=== PATIENT | female | born 1995 | race Caucasian/White ===

== ENCOUNTER 2020-08-14 08:00 | Outpatient (CLI) | payer BC, OTHER ==
[2020-08-14 15:13] LABS: BASOPHILS % (AUTO) 0.3 %; EOSINOPHILS # (AUTO) 0.1 10^3/uL (0.0-0.7); EOSINOPHILS % (AUTO) 0.9 %; HCT - HEMATOCRIT 39.3 % (37.0-47.0); HGB - HEMOGLOBIN 13.2 g/dL (12.0-16.0); LYMPHOCYTES # (AUTO) 1.4 10^3/uL (1.5-3.5); LYMPHOCYTES % (AUTO) 22.1 %; MEAN CORPUSCULAR HEMOGLOBIN 30.9 pg (27.0-31.0); MEAN CORPUSCULAR HGB CONC 33.6 g/dL (32.0-36.0); MEAN PLATELET VOLUME 10.9 fL (7.9-10.8); MONOCYTES # (AUTO) 0.7 10^3/uL (0.0-1.0); MONOCYTES % (AUTO) 10.7 %; NEUTROPHILS # (AUTO) 4.2 10^3/uL (1.5-6.6); NEUTROPHILS % (AUTO) 65.7 %; PLT - PLATELET COUNT 290 10^3/uL (130-450); RED BLOOD COUNT 4.27 10^6/uL (4.20-5.40); RED CELL DISTRIBUTION WIDTH 12.2 % (12.0-15.0); WHITE BLOOD COUNT 6.4 x10^3/uL (4.8-10.8)
[2020-08-14 15:35] LABS: ALBUMIN 4.3 g/dL (3.2-5.5); ALBUMIN/GLOBULIN RATIO 1.3 (1.0-2.2); BILIRUBIN,TOTAL 0.6 mg/dL (0.2-1.0); CREATININE 0.5 mg/dL (0.4-1.0); TOTAL PROTEIN 7.7 g/dL (6.7-8.2)
== END 2020-08-14 23:59 | disposition home or self-care (01) ==
LOC: LAB.S 08:00
PROVIDERS: ATTEND Physician Assistant Medical
DX: R10.9 Unspecified abdominal pain (principal); R11.0 Nausea; B34.9 Viral infection, unspecified; Z20.822 Contact with and (suspected) exposure to COVID-19
CPT/HCPCS: 36415; 80053; 82150; 83690; 85025; 87275; 87276

== ENCOUNTER 2021-01-29 08:00 | Outpatient (CLI) | payer OTHER ==
[2021-01-29 19:54] LABS: BILIRUBIN,URINE NEGATIVE (NEGATIVE); GLUCOSE, URINE (UA) NEGATIVE (NEGATIVE); KETONES,URINE (UA) NEGATIVE (NEGATIVE); LEUKOCYTE ESTERASE, URINE NEGATIVE (NEGATIVE); NITRITE,URINE NEGATIVE (NEGATIVE); OCCULT BLOOD,URINE NEGATIVE (NEGATIVE); PROTEIN,URINE NEGATIVE (NEGATIVE); UROBILINOGEN,URINE 0.2 (NORMAL) E.U./dL (NORMAL)
[2021-01-29 20:00] LABS: CLARITY,URINE CLEAR (CLEAR)
[2021-01-29 20:03] LABS: AMORPHOUS SEDIMENT,UR Few /LPF; BACTERIA,URINE Few /HPF (None Seen); MUCUS,URINE Few Strands; RBC,URINE 0-5 /HPF (0-5); SQUAMOUS EPITHELIAL CELL,UR MOD Squamous (<= Few)
== END 2021-01-29 23:59 | disposition home or self-care (01) ==
LOC: LAB.S 08:00
PROVIDERS: ATTEND Registered Nurse
DX: R30.0 Dysuria (principal)
CPT/HCPCS: 81001; 87086

== ENCOUNTER 2021-01-29 18:01 | Outpatient (CLI) | payer OTHER ==
[2021-01-29 19:56] LABS: BASOPHILS % (AUTO) 0.1 %; EOSINOPHILS # (AUTO) 0.1 10^3/uL (0.0-0.7); EOSINOPHILS % (AUTO) 0.4 %; HCT - HEMATOCRIT 39.2 % (37.0-47.0); HGB - HEMOGLOBIN 12.7 g/dL (12.0-16.0); LYMPHOCYTES # (AUTO) 2.2 10^3/uL (1.5-3.5); LYMPHOCYTES % (AUTO) 19.6 %; MEAN CORPUSCULAR HEMOGLOBIN 29.9 pg (27.0-31.0); MEAN CORPUSCULAR HGB CONC 32.4 g/dL (32.0-36.0); MEAN CORPUSCULAR VOLUME 92.2 fL (81.0-99.0); MEAN PLATELET VOLUME 10.6 fL (7.9-10.8); MONOCYTES # (AUTO) 0.7 10^3/uL (0.0-1.0); MONOCYTES % (AUTO) 6.3 %; NEUTROPHILS # (AUTO) 8.2 10^3/uL (1.5-6.6); NEUTROPHILS % (AUTO) 73.3 %; PLT - PLATELET COUNT 327 10^3/uL (130-450); RED BLOOD COUNT 4.25 10^6/uL (4.20-5.40); RED CELL DISTRIBUTION WIDTH 12.3 % (12.0-15.0); WHITE BLOOD COUNT 11.2 x10^3/uL (4.8-10.8)
[2021-01-29 20:12] LABS: ALBUMIN 4.7 g/dL (3.2-5.5); ALBUMIN/GLOBULIN RATIO 1.3 (1.0-2.2); BILIRUBIN,TOTAL 0.5 mg/dL (0.2-1.0); CALCIUM 9.6 mg/dL (8.5-10.3); CREATININE 0.7 mg/dL (0.4-1.0); POTASSIUM 3.6 mmol/L (3.5-5.0); TOTAL PROTEIN 8.2 g/dL (6.7-8.2)
[2021-01-29 20:25] LABS: THYROID STIMULATING HORMONE 3.2 uIU/mL (0.34-5.60)
--- NOTE | 2021-01-30 10:54 | XRAY Report ---
PROCEDURE: Abdomen 2 View X-Ray INDICATIONS: Dysuria, abdominal pain TECHNIQUE: 2 views of the abdomen were acquired. COMPARISON: None FINDINGS: Surgical changes and devices: None. Bowel: No pneumoperitoneum. The bowel gas pattern is normal. Moderate volume of formed stool in th e colon. Soft tissues: The splenic shadow measures up to 14 cm in length, mildly enlarged. No suspicious abdom inal or pelvic calcification to indicate urolithiasis. Bones: No suspicious bony abnormalities. IMPRESSION: No plain radiographic evidence of urinary tract calculus. Enlarged splenic shadow which could be related to magnification due to AP technique. Consider complet e abdominal ultrasound to further evaluate for splenomegaly and as further workup of abdominal pain. Moderate volume of formed stool throughout the colon which may indicate constipation. Reviewed by: Ceferino Gomes MD on 01/30/2021 10:52 AM PDT Approved by: Ceferino Gomes MD on 01/30/2021 10:52 AM PDT Station ID: [id number]
== END 2021-01-29 18:02 | disposition home or self-care (01) ==
LOC: DI.S 18:01
PROVIDERS: ATTEND Registered Nurse
DX: R10.9 Unspecified abdominal pain (principal); R30.0 Dysuria
CPT/HCPCS: 36415; 80053; 84443; 85025

== ENCOUNTER 2021-02-03 07:12 | Outpatient (CLI) | payer OTHER ==
--- NOTE | 2021-02-03 12:54 | Ultrasound Report ---
PROCEDURE: Abdomen Complete INDICATIONS: ABD PAIN, DYSURIA TECHNIQUE: Real-time scanning was performed of the abdominal and retroperitoneal organs, with image documentatio n. COMPARISON: None. FINDINGS: Liver: Liver is normal in size and homogeneous in echotexture. Gallbladder: Normal. No gallstones or wall thickening. Biliary ducts: Intrahepatic bile ducts are non-dilated. Extrahepatic bile duct caliber measures 6 m m. Normal is 6-7 mm or less in diameter, or 10 mm or less post-cholecystectomy. Pancreas: Visualized portions of the pancreas are sonographically normal. Spleen: Spleen is normal in size and homogeneous in echotexture. Kidneys: Kidneys are normal in size and echotexture. Right kidney measures 10.9 cm long; left kidne y measures 10.9 cm long. No hydronephrosis or nephrolithiasis. No solid masses. Aorta: Visualized aorta is normal in caliber at less than 3 cm. Iliacs: Proximal common iliac arteries are normal in caliber at less than 2.5 cm. IVC: Intrahepatic inferior vena cava is patent. Miscellaneous: No free abdominal fluid. IMPRESSION: No acute findings. Common bile duct measures at the upper limits of normal. Reviewed by: Hakan Penny on 02/03/2021 11:52 AM DRE Approved by: Hakan Penny on 02/03/2021 11:52 AM DRE Station ID: [id number]
== END 2021-02-03 07:13 | disposition home or self-care (01) ==
LOC: DI 07:12
PROVIDERS: ATTEND Registered Nurse
DX: R10.9 Unspecified abdominal pain (principal); R30.0 Dysuria

== ENCOUNTER 2021-05-23 17:07 | Outpatient (CLI) | payer OTHER | END 2021-05-23 17:08 | disposition critical access hospital (66) | LOC: EMS 17:07 | DX: R10.13 Epigastric pain (principal) | CPT/HCPCS: A0425; A0429 ==

== ENCOUNTER 2021-05-23 17:40 | Emergency (ER) | payer OTHER ==
--- NOTE | 2021-05-23 18:23 | ED Physician Documentation ---
PD HPI ABD PAIN - Stated complaint Stated Complaint: ABD PAIN - Chief complaint Chief Complaint: Abd Pain - History obtained from History obtained from: Patient - History of Present Illness Timing - onset: Today Timing - duration: Hours (4) Timing - details: Abrupt onset Pain level max: 10 Pain level now: 0 Quality: Aching, Pain Location: RUQ, Epigastric Radiation: Other (mid back) Improved by: Other (nothing) Worsened by: Palpation Associated symptoms: Nausea. No: Fever, Vomiting, Hematemesis, Diarrhea, Constipation, Melena, Hematochezia, Dysuria, Hematuria Similar symptoms before: Has not had sx before Recently seen: Clinic (sent from walk in clinic for Evaluation of her abdominal pain.) Review of Systems Ten Systems: 10 systems reviewed and negative Constitutional: denies: Fever, Chills Nose: denies: Rhinorrhea / runny nose, Congestion Respiratory: denies: Cough GI: denies: Diarrhea : denies: Now EGA Skin: denies: Rash Musculoskeletal: denies: Neck pain Neurologic: denies: Headache PD PAST MEDICAL HISTORY - Past Medical History Past Medical History: No - Past Surgical History Past Surgical History: No - Present Medications Home Medications: Ambulatory Orders Medication Instructions Recorded Confirmed HYDROcod/ACETAM 5/325 [[place] 5/325] 1 - 2 ea PO Q6H PRN #14 tablet 05/23/21 Ondansetron Odt [Zofran] 4 mg TL Q6H PRN #10 tablet 05/23/21 - Allergies Allergies/Adverse Reactions: Allergies Allergy/AdvReac Type Severity Reaction Status Date / Time No Known Drug Allergies Allergy Verified 05/23/21 17:54 - Living Situation Living Arrangement: reports: At home - Social History Does the pt drink ETOH?: No Does the pt have substance abuse?: No PD ED PE NORMAL - Vitals Vital signs reviewed: Yes - General General: Alert and oriented X 3, No acute distress - HEENT HEENT: Moist mucous membranes - Neck Neck: Supple, no meningeal sign - Cardiac Cardiac: RRR - Respiratory Respiratory: No respiratory distress, Clear bilaterally - Abdomen Abdomen: Soft, Non tender, Non distended - Derm Derm: Warm and dry, No rash - Extremities Extremities: No edema - Neuro Neuro: Alert and oriented X 3 Results - Vitals Vitals: Vital Signs - 24 hr 05/23/21 05/23/21 05/23/21 17:49 18:00 20:00 Temperature 36.8 C 37.6 C Heart Rate 96 92 87 Respiratory 16 20 16 Rate Blood Pressure 123/74 123/78 104/65 O2 Saturation 98 100 97 Oxygen O2 Source Room air - Labs Labs: Laboratory Tests 05/23/21 05/23/21 05/23/21 17:58 17:58 18:38 WBC 13.4 H RBC 4.04 L Hgb 12.3 Hct 36.9 L MCV 91.3 MCH 30.4 MCHC 33.3 RDW 12.2 Plt Count 242 MPV 10.5 Neut # (Auto) 12.2 H Lymph # (Auto) 0.5 L [place] # (Auto) 0.7 Eos # (Auto) 0.0 Baso # (Auto) 0.0 Absolute Nucleated RBC 0.00 Nucleated RBC % 0.0 Sodium 137 Potassium 3.7 Chloride 101 Carbon Dioxide 25 Anion Gap 11.0 BUN 15 Creatinine 0.7 Estimated GFR (MDRD) 100 Glucose 122 H Calcium 9.1 Total Bilirubin 1.4 H AST 543 H ALT 208 H Alkaline Phosphatase 93 Total Protein 7.7 Albumin 4.4 Globulin 3.3 Albumin/Globulin Ratio 1.3 Lipase 23 Urine Color YELLOW Urine Clarity CLEAR Urine pH 7.5 Ur Specific [place] 1.020 Urine Protein NEGATIVE Urine Glucose (UA) NEGATIVE Urine Ketones 40 H Urine Occult Blood NEGATIVE Urine Nitrite NEGATIVE Urine Bilirubin NEGATIVE Urine Urobilinogen 1 (NORMAL) Ur Leukocyte Esterase NEGATIVE Ur Microscopic Review NOT INDICATED Urine Culture Comments NOT INDICATED Urine HCG, Qual 05/23/21 18:38 WBC RBC Hgb Hct MCV MCH MCHC RDW Plt Count MPV Neut # (Auto) Lymph # (Auto) [place] # (Auto) Eos # (Auto) Baso # (Auto) Absolute Nucleated RBC Nucleated RBC % Sodium Potassium Chloride Carbon Dioxide Anion Gap BUN Creatinine Estimated GFR (MDRD) Glucose Calcium Total Bilirubin AST ALT Alkaline Phosphatase Total Protein Albumin Globulin Albumin/Globulin Ratio Lipase Urine Color Urine Clarity Urine pH Ur Specific [place] Urine Protein Urine Glucose (UA) Urine Ketones Urine Occult Blood Urine Nitrite Urine Bilirubin Urine Urobilinogen Ur Leukocyte Esterase Ur Microscopic Review Urine Culture Comments Urine HCG, Qual NEGATIVE - Rads (name of study) CT abd/pelvis Radiology: Final report received, EMP read contemporaneously, See rad report Abd US Radiology: Final report received, EMP read contemporaneously, See rad report PD MEDICAL DECISION MAKING - ED course Complexity details: reviewed results, re-evaluated patient, considered differential, d/w patient ED course: Symptoms had resolved prior to arrival in the emergency department. She does have mildly elevated liver function tests. Her symptoms would be consistent with a passed small gallstone or potentially gallbladder sludge. No acute findings on CT scan or ultrasound. We will have her follow-up closely with her doctor for repeat LFTs and possible HIDA scan. I am prescribing a short course of short- acting opioid pain medication for this patient. I have reviewed the patients TEST BAKER and no concerning findings were noted. I have discussed that the opioids are for short term therapy only, and will not be refilled from the ED. patient counseled regarding signs and symptoms for which I believe and urgent re- evaluation would be necessary. Patient with good understanding of and agreement to plan and is comfortable going home at this time This document was made in part using voice recognition software. While efforts are made to proofread this document, sound alike and grammatical errors may occur. Ultrasound Results: IMPRESSION: 1. No acute cholecystitis demonstrated. No gallstones. 2. Prominent node adjacent to the pancreas measuring 1 cm. 3. CBD is at the upper limits of normal. Consider further evaluation with CT abdomen and pelvis with IV contrast. CT results: IMPRESSION: Source for abdominal pain is not identified. No small bowel obstruction. No free fluid. Normal appendix. No hydronephrosis. Departure - Departure Disposition: 01 Home, Self Care Clinical Impression: Elevated liver function tests Abdominal pain Qualifiers: Abdominal location: epigastric Qualified Code(s): R10.13 - Epigastric pain Condition: Good Instructions: ED Abdominal Pain Female Non-Specific Abdominal Pain, ED Abdominal Pain Gallstone Poss Follow-Up: Ericka Oliva ARNP [Primary Care Provider] - Within 1 week Prescriptions: HYDROcod/ACETAM 5/325 [[place] 5/325] 1 - 2 ea PO Q6H PRN #14 tablet PRN Reason: Pain Ondansetron Odt [Zofran] 4 mg TL Q6H PRN #10 tablet PRN Reason: Nausea / Vomiting Comments: Your prescriptions were sent to [facility] in [place]. Please follow-up with your doctor for further care. Return if you worsen. Your symptoms could be due to the passage of gallbladder sludge or a small stone. Your doctor may want to perform a HIDA scan to further evaluate your gallbladder. I am prescribing a short course of narcotic pain medication for you. These are potentially dangerous and addictive medications that should be used carefully. These medications may constipate you. Take an [id number]-fwakodt stool softener (docusate) twice daily with plenty of water while taking these medications. If you go 24 hours without a bowel movement, take oadg-tqy-ellikub miralax, per package instructions. Do not drink or drive while taking these medications. If you received narcotic or sedating medications while in the emergency department, do not drive for 24 hours. Store this medication in a safe, secure place and out of reach of children. It is a violation of federal law to give or sell this medication to another person or to use in a manner other than prescribed. The ED will not refill narcotic prescriptions, including prescriptions lost or stolen. To dispose of unwanted medications: 1. [facility] at [address] in [place] has a medication drop box. They accept prescription medications (in pill form) Thursday through Thursday 9:00 a.m. to 5:00 p.m. 2. The [facility] [employer] accepts prescription medications (in pill form only) for disposal year round. Call for more information. 3. Contact the [facility] for the next [facility] sponsored prescription drug collection event. , [phone], or [phone]; Ultrasound Results: IMPRESSION: 1. No acute cholecystitis demonstrated. No gallstones. 2. Prominent node adjacent to the pancreas measuring 1 cm. 3. CBD is at the upper limits of normal. Consider further evaluation with CT abdomen and pelvis with IV contrast. CT results:
[2021-05-23 18:26] LABS: BASOPHILS % (AUTO) 0.2 %; EOSINOPHILS % (AUTO) 0.1 %; HCT - HEMATOCRIT 36.9 % (37.0-47.0); HGB - HEMOGLOBIN 12.3 g/dL (12.0-16.0); LYMPHOCYTES # (AUTO) 0.5 10^3/uL (1.5-3.5); LYMPHOCYTES % (AUTO) 3.8 %; MEAN CORPUSCULAR HEMOGLOBIN 30.4 pg (27.0-31.0); MEAN CORPUSCULAR HGB CONC 33.3 g/dL (32.0-36.0); MEAN CORPUSCULAR VOLUME 91.3 fL (81.0-99.0); MEAN PLATELET VOLUME 10.5 fL (7.9-10.8); MONOCYTES # (AUTO) 0.7 10^3/uL (0.0-1.0); MONOCYTES % (AUTO) 4.8 %; NEUTROPHILS # (AUTO) 12.2 10^3/uL (1.5-6.6); NEUTROPHILS % (AUTO) 90.8 %; PLT - PLATELET COUNT 242 10^3/uL (130-450); RED BLOOD COUNT 4.04 10^6/uL (4.20-5.40); RED CELL DISTRIBUTION WIDTH 12.2 % (12.0-15.0); WHITE BLOOD COUNT 13.4 x10^3/uL (4.8-10.8)
[2021-05-23 18:44] LABS: ALBUMIN 4.4 g/dL (3.2-5.5); ALBUMIN/GLOBULIN RATIO 1.3 (1.0-2.2); BILIRUBIN,TOTAL 1.4 mg/dL (0.2-1.0); CALCIUM 9.1 mg/dL (8.5-10.3); CREATININE 0.7 mg/dL (0.4-1.0); POTASSIUM 3.7 mmol/L (3.5-5.0); TOTAL PROTEIN 7.7 g/dL (6.7-8.2)
[2021-05-23 18:48] LABS: BILIRUBIN,URINE NEGATIVE (NEGATIVE); GLUCOSE, URINE (UA) NEGATIVE (NEGATIVE); KETONES,URINE (UA) 40 mg/dL (NEGATIVE); LEUKOCYTE ESTERASE, URINE NEGATIVE (NEGATIVE); NITRITE,URINE NEGATIVE (NEGATIVE); OCCULT BLOOD,URINE NEGATIVE (NEGATIVE); PH,URINE 7.5 PH (5.0-7.5); PROTEIN,URINE NEGATIVE (NEGATIVE); UROBILINOGEN,URINE 1 (NORMAL) E.U./dL (NORMAL)
[2021-05-23 18:52] LABS: CLARITY,URINE CLEAR (CLEAR); HCG UR QUAL NEGATIVE
[2021-05-23] MEDS ORDERED: IOPAMIDOL-300 100 ML VIAL ONE (20:30)
--- NOTE | 2021-05-23 20:34 | Ultrasound Report ---
PROCEDURE: Abdomen Limited INDICATIONS: RUQ abd pain TECHNIQUE: Real-time scanning was performed of the right upper quadrant, with image documentation. COMPARISON: Abdominal ultrasound 02/03/2021. FINDINGS: Liver: Liver is normal in size and homogeneous in echotexture. Gallbladder: Gallbladder is nondistended. No stones or sludge. No gallbladder wall thickening. No per icholecystic fluid. Negative sonographic [place] sign. Biliary ducts: Intrahepatic bile ducts are non-dilated. Extrahepatic bile duct caliber measures 6 m m. Normal is 6-7 mm or less in diameter, or 10 mm or less post-cholecystectomy. Pancreas: Visualized portions of the pancreas are sonographically normal. Prominent node adjacent to the pancreas measuring 1 cm. Right kidney: Right kidney measures 10.4 cm. No hydronephrosis. IVC: Intrahepatic inferior vena cava is patent. IMPRESSION: 1. No acute cholecystitis demonstrated. No gallstones. 2. Prominent node adjacent to the pancreas measuring 1 cm. 3. CBD is at the upper limits of normal. Consider further evaluation with CT abdomen and pelvis with IV contrast. Reviewed by: Sina Reese MD on 05/23/2021 8:32 PM PST Approved by: Sina Reese MD on 05/23/2021 8:32 PM PST Station ID: [id number]
[2021-05-23] MEDS ORDERED: IOPAMIDOL-300 100 ML VIAL IVP ONE (21:19)
--- NOTE | 2021-05-23 21:33 | CT Report ---
PROCEDURE: Abdomen/Pelvis W INDICATIONS: abd pain, elevated LFT CONTRAST: IV CONTRAST: Isovue 300 ml: 90 PO CONTRAST: *NO PO CONTRAST TECHNIQUE: After the administration of intravenous contrast, 5 mm thick sections acquired from the diaphragms to the symphysis. 5 mm thick coronal and sagittal reformats were acquired. For radiation dose reducti on, the following was used: automated exposure control, adjustment of mA and/or kV according to judah ent size. COMPARISON: Abdominal ultrasound earlier today. Abdominal ultrasound 02/03/2021. FINDINGS: Image quality: Excellent. ABDOMEN: Lung bases: Lung bases are clear. Heart size is normal. Solid organs: Liver and spleen are at the upper limits of normal. No focal lesion. Gallbladder is n ot distended. No calcified gallstones. Biliary system is non dilated. CBD measures 0.6 cm. No intrah epatic biliary ductal dilatation. Pancreas enhances normally. No adrenal nodules. Kidneys demonstra te normal size and enhancement, without hydronephrosis. Peritoneum and bowel: Bowel loops demonstrate normal wall thickness and caliber. Appendix. No free fluid or air. Nodes and vessels: No retroperitoneal or mesenteric adenopathy by size criteria. Aorta and inferior vena cava are normal in size. Miscellaneous: Tiny umbilical hernia. PELVIS: Genitourinary: Bladder wall thickness is normal. Anteverted uterus. Miscellaneous: No inguinal hernias or adenopathy. Bones: No suspicious bony lesions. No vertebral body compression fractures. IMPRESSION: Source for abdominal pain is not identified. No small bowel obstruction. No free fluid. Normal appendix. No hydronephrosis. Reviewed by: Sina Reese MD on 05/23/2021 9:31 PM PST Approved by: Sina Reese MD on 05/23/2021 9:31 PM PST Station ID: [id number]
[2021-05-23 22:29] VITALS: BP 114/84
== END 2021-05-23 22:29 | disposition home or self-care (01) ==
LOC: EDUNIT# → ED 17:40
DX: R10.13 Epigastric pain (principal); R79.89 Other specified abnormal findings of blood chemistry
CPT/HCPCS: 36415; 74177; 76705; 80053; 81003; 81025; 83690; 85025; 99284; Q9967; 81001; 87086